=== PATIENT | female | born 1970 | race Caucasian/White ===

== ENCOUNTER 2019-03-17 22:55 | Inpatient (IN) ==
[2019-03-17] MEDS ORDERED: NITROGLYCERIN 2% OINT 1 INCH/GM PACK TOP STA (23:25)
[2019-03-17] MEDS ORDERED: HEPARIN DRIP 25,000 UNITS/500 ML PREMIX IV SCH (23:30)
[2019-03-18 01:41] LABS: PT Patient Result 10.8 SECS
[2019-03-18 07:07] LABS: PT Patient Result 10.9 SECS; Partial Thromboplastin Time 35.3 SECS (0-40)
[2019-03-18 10:11] LABS: Basophils # 0.1 10*3/uL (0.0-0.2); Basophils % 0.4 % (0.0-0.8); Eosinophils # 0.2 10*3/uL (0.0-0.87); Eosinophils % 1.8 % (0.00-10.9); Hematocrit 41.7 VOL% (35.7-47.0); Immature Granulocytes % 0.6 %; Immature Granulocytes Absolute 0.07 #; Lymphocytes # 3.6 10*3/uL (1.4-4.0); Mean Corpuscular HGB Conc 31.2 GM/DL (32-36); Mean Corpuscular Volume 88.5 FL (87-102); Mean Platelet Volume 10.1 FL (9.6-12.0); Neutrophils % 62.2 % (38.7-73.9); Platelet Count 256 T/CUMM (130-400); Red Blood Count 4.71 MC/CUMM (3.8-5.5); Red Cell Distribution Width 14.3 % (9.3-17.3); White Blood Count 11.9 T/CUMM (4-12)
[2019-03-18] MEDS: METOPROLOL TARTRATE 25 MG TABLET PO SCH ×2 (10:13→21:11)
[2019-03-18] MEDS: DEXTROSE 5% NACL 0.9% 1,000 ML IV SCH ×2 (10:22→10:23)
[2019-03-18 10:32] LABS: Troponin I 0.704 NG/ML (0.00-0.045)
[2019-03-18 10:37] LABS: Alanine Aminotransferase 51 U/L (13-56); Albumin 3.4 G/DL (3.4-5.0); Alkaline Phosphatase 86 U/L (45-117); Aspartate Amino Transferase 27 U/L (0-37); Bilirubin,Total < 0.39 MG/DL (0.2-1.0); Blood Urea Nitrogen 14 MG/DL (7-18); Glucose 108 MG/DL (74-106); HDL Cholesterol 45 MG/DL (40-60); Osmolality,Calculated 278.5 MOS/KG (273-304); Risk Ratio 2.87; Triglycerides 245 MG/DL (2-150)
[2019-03-18] MEDS: SODIUM CHLORIDE 0.9% 1,000 ML IV SCH (12:49)
[2019-03-18] MEDS: ACETAMINOPHEN 325 MG TABLET PO PRN (14:51)
[2019-03-18] MEDS: busPIRone 10 MG TABLET PO SCH ×2 (14:52→21:11)
[2019-03-18] MEDS ORDERED: NITROGLYCERIN SL 0.4 MG TABLET SL ONE (16:00)
[2019-03-18] MEDS ORDERED: amLODIPine 5 MG TABLET PO ONE (16:10)
[2019-03-18] MEDS: HEPARIN DRIP 25,000 UNITS/500 ML PREMIX IV SCH (16:31)
[2019-03-18] MEDS: NITROGLYCERIN 2% OINT 1 INCH/GM PACK TOP SCH (18:27)
[2019-03-18] MEDS: SIMVASTATIN 40 MG TABLET PO SCH (21:11)
[2019-03-18] MEDS ORDERED: HEPARIN 5,000 UNIT/1 ML VIAL IV PRN (23:28)
[2019-03-19] MEDS: NITROGLYCERIN 2% OINT 1 INCH/GM PACK TOP SCH ×5 (00:18→23:13)
[2019-03-19] MEDS: SODIUM CHLORIDE 0.9% 1,000 ML IV SCH ×2 (02:08→15:18)
[2019-03-19 03:37] LABS: Basophils # 0.1 10*3/uL (0.0-0.2); Basophils % 0.4 % (0.0-0.8); Eosinophils # 0.3 10*3/uL (0.0-0.87); Eosinophils % 2.8 % (0.00-10.9); Immature Granulocytes % 0.3 %; Immature Granulocytes Absolute 0.03 #; Lymphocytes # 4.3 10*3/uL (1.4-4.0); Lymphocytes % 37.4 % (21.3-54.2); Mean Corpuscular HGB Conc 31.6 GM/DL (32-36); Mean Corpuscular Volume 89.2 FL (87-102); Mean Platelet Volume 10.2 FL (9.6-12.0); Neutrophils % 53.1 % (38.7-73.9); Platelet Count 229 T/CUMM (130-400); Red Blood Count 4.26 MC/CUMM (3.8-5.5); Red Cell Distribution Width 14.4 % (9.3-17.3); White Blood Count 11.6 T/CUMM (4-12)
[2019-03-19 04:03] LABS: Albumin 3.1 G/DL (3.4-5.0); Bilirubin,Total 0.5 MG/DL (0.2-1.0); Calcium 8.8 MG/DL (8.5-10.1); Osmolality,Calculated 280.3 MOS/KG (273-304); Total Protein 6.3 G/DL (6.4-8.3)
[2019-03-19] MEDS: HEPARIN DRIP 25,000 UNITS/500 ML PREMIX IV SCH (05:13)
[2019-03-19] MEDS ORDERED: POTASSIUM CHLORIDE RIDER 10 MEQ in PREMIX 1 EACH IV PRN (07:43)
[2019-03-19] MEDS ORDERED: MAGNESIUM SULF RIDER 2 GM in PREMIX 1 EACH IV PRN (07:43)
[2019-03-19] MEDS: busPIRone 10 MG TABLET PO SCH ×3 (08:38→20:50)
[2019-03-19] MEDS: ENOXAPARIN 150 MG/ML SYRINGE SUBCUT SCH ×2 (08:38→20:49)
[2019-03-19] MEDS: ASPIRIN EC 81 MG TABLET PO SCH (08:39)
[2019-03-19] MEDS: FERROUS SULFATE 325 MG TABLET PO SCH (08:39)
[2019-03-19] MEDS: POTASSIUM CHLORIDE 20 MEQ TABLET PO SCH (08:39)
[2019-03-19] MEDS: METOPROLOL TARTRATE 25 MG TABLET PO SCH ×2 (08:39→20:50)
[2019-03-19] MEDS: LOSARTAN 25 MG TABLET PO SCH ×2 (08:40→20:50)
[2019-03-19] MEDS: PANTOPRAZOLE 40 MG TABLET PO SCH (08:40)
[2019-03-19] MEDS: VORTIOXETINE 20 MG PO SCH (08:54)
[2019-03-19] MEDS ORDERED: amLODIPine 5 MG TABLET PO SCH (09:00)
[2019-03-19] MEDS: ACETAMINOPHEN 325 MG TABLET PO PRN (15:19)
[2019-03-19] MEDS ORDERED: traMADol 50 MG TABLET PO PRN (17:17)
[2019-03-19] MEDS: SIMVASTATIN 40 MG TABLET PO SCH (20:50)
[2019-03-20] MEDS: NITROGLYCERIN 2% OINT 1 INCH/GM PACK TOP SCH ×3 (05:01→17:22)
[2019-03-20] MEDS: SODIUM CHLORIDE 0.9% 1,000 ML IV SCH ×2 (05:01→15:39)
[2019-03-20 05:10] LABS: Basophils # 0.1 10*3/uL (0.0-0.2); Basophils % 0.5 % (0.0-0.8); Eosinophils # 0.3 10*3/uL (0.0-0.87); Eosinophils % 3.1 % (0.00-10.9); Hematocrit 39.2 VOL% (35.7-47.0); Hemoglobin 11.8 GM/DL (12.0-16.0); Immature Granulocytes % 0.5 %; Immature Granulocytes Absolute 0.05 #; Lymphocytes % 31.1 % (21.3-54.2); Mean Corpuscular HGB Conc 30.1 GM/DL (32-36); Mean Corpuscular Volume 91.2 FL (87-102); Mean Platelet Volume 10.2 FL (9.6-12.0); Monocytes % 6.5 % (1.7-12.7); Neutrophils % 58.3 % (38.7-73.9); Platelet Count 224 T/CUMM (130-400); Red Cell Distribution Width 14.5 % (9.3-17.3); White Blood Count 9.7 T/CUMM (4-12)
[2019-03-20 05:12] LABS: Calcium 8.9 MG/DL (8.5-10.1); Osmolality,Calculated 280.3 MOS/KG (273-304)
[2019-03-20] MEDS ORDERED: DIAZEPAM 5 MG TABLET PO ONE (08:00)
[2019-03-20] MEDS ORDERED: diphenhydrAMINE CAP 25 MG CAPSULE PO ONE (08:00)
[2019-03-20] MEDS ORDERED: LIDOCAINE 1% 20 ML VIAL ONE (11:39)
[2019-03-20] MEDS ORDERED: NITROGLYCERIN DRIP 50 MG/250 ML BOTTLE IV ONE (11:39)
[2019-03-20] MEDS ORDERED: MIDAZOLAM 2 MG/2 ML VIAL ONE ×2 (11:39→11:55)
[2019-03-20] MEDS ORDERED: fentaNYL 100 MCG/2 ML VIAL ONE (11:39)
[2019-03-20] MEDS ORDERED: VERAPAMIL 5 MG/2 ML VIAL ONE (11:39)
[2019-03-20] MEDS ORDERED: PROMETHAZINE 25 MG/1 ML VIAL ONE (11:57)
[2019-03-20] MEDS ORDERED: ENOXAPARIN 60 MG/0.6 ML SYRINGE ONE (12:08)
[2019-03-20] MEDS ORDERED: diphenhydrAMINE 50 MG/1 ML VIAL ONE (12:23)
[2019-03-20] MEDS ORDERED: TIROFIBAN 5,000 MCG/100 ML PREMIX IV ONE ×2 (12:23→12:48)
[2019-03-20] MEDS ORDERED: TIROFIBAN 5,000 MCG/100 ML PREMIX IV SCH (12:25)
[2019-03-20] MEDS ORDERED: HYDROmorphone 2 MG/1 ML VIAL ONE (12:28)
[2019-03-20] MEDS ORDERED: hydrALAZINE 20 MG/1 ML VIAL ONE (12:31)
[2019-03-20] MEDS ORDERED: TICAGRELOR 90 MG TABLET ONE (13:06)
[2019-03-20] MEDS ORDERED: GLUCAGON 1 MG VIAL IM PRN (13:22)
[2019-03-20] MEDS ORDERED: DEXTROSE 50% 25 GM/50 ML VIAL IV PRN (13:22)
[2019-03-20] MEDS: busPIRone 10 MG TABLET PO SCH ×3 (13:49→21:56)
[2019-03-20 14:23] LABS: Apearance,Urine CLEAR (Clear); Bilirubin,Urine Negative (Negative); Blood, Urine Negative (Negative); Glucose,Urine (UA) Negative (Negative); Ketones,Urine Negative (Negative); Nitrite,Urine Negative (Negative); Protein,Urine Negative; RBC,Urine 1 /HPF (0-4); Urine Color Colorless (Yellow); Urine Specific Gravity 1.038 (1.001-1.035); Urine Urobilinogen < 2.0 EU/DL (<2.0)
[2019-03-20] MEDS: PANTOPRAZOLE 40 MG TABLET PO SCH (14:25)
[2019-03-20] MEDS: POTASSIUM CHLORIDE 20 MEQ TABLET PO SCH (14:25)
[2019-03-20] MEDS: ASPIRIN EC 81 MG TABLET PO SCH (14:25)
[2019-03-20] MEDS: LOSARTAN 25 MG TABLET PO SCH ×2 (14:26→21:56)
[2019-03-20] MEDS: FERROUS SULFATE 325 MG TABLET PO SCH (14:26)
[2019-03-20] MEDS: ENOXAPARIN 150 MG/ML SYRINGE SUBCUT SCH (14:26)
[2019-03-20] MEDS: VORTIOXETINE 20 MG PO SCH (14:26)
[2019-03-20] MEDS: METOPROLOL TARTRATE 25 MG TABLET PO SCH ×2 (14:26→21:57)
[2019-03-20] MEDS: INSULIN REGULAR 100 UNIT/ML SUBCUT SCH ×2 (16:21→21:57)
[2019-03-20] MEDS ORDERED: ENOXAPARIN 30 MG/0.3 ML SYRINGE SUBCUT SCH (21:00)
[2019-03-20] MEDS: SIMVASTATIN 40 MG TABLET PO SCH (21:56)
[2019-03-20] MEDS: TICAGRELOR 90 MG TABLET PO SCH (21:57)
[2019-03-21] MEDS: NITROGLYCERIN 2% OINT 1 INCH/GM PACK TOP SCH ×2 (03:41→06:22)
[2019-03-21] MEDS: SODIUM CHLORIDE 0.9% 1,000 ML IV SCH (03:41)
[2019-03-21 05:01] LABS: Basophils % 0.2 % (0.0-0.8); Eosinophils # 0.1 10*3/uL (0.0-0.87); Eosinophils % 0.8 % (0.00-10.9); Hematocrit 36.1 VOL% (35.7-47.0); Hemoglobin 11.3 GM/DL (12.0-16.0); Immature Granulocytes % 0.5 %; Immature Granulocytes Absolute 0.07 #; Lymphocytes # 2.2 10*3/uL (1.4-4.0); Lymphocytes % 16.7 % (21.3-54.2); Mean Corpuscular HGB Conc 31.3 GM/DL (32-36); Mean Corpuscular Volume 88.5 FL (87-102); Mean Platelet Volume 10.1 FL (9.6-12.0); Monocytes % 6.9 % (1.7-12.7); Neutrophils % 74.9 % (38.7-73.9); Platelet Count 237 T/CUMM (130-400); Red Blood Count 4.08 MC/CUMM (3.8-5.5); Red Cell Distribution Width 14.6 % (9.3-17.3)
[2019-03-21 05:44] LABS: Calcium 8.5 MG/DL (8.5-10.1); Osmolality,Calculated 279.3 MOS/KG (273-304)
[2019-03-21 05:45] LABS: Troponin I 0.618 NG/ML (0.00-0.045)
[2019-03-21] MEDS ORDERED: NITROGLYCERIN SL 0.4 MG TABLET SL PRN (08:05)
[2019-03-21 08:41] VITALS: BP 185/85
[2019-03-21] MEDS ORDERED: METOPROLOL TARTRATE 50 MG TABLET PO SCH (09:00)
[2019-03-21] MEDS ORDERED: POTASSIUM CHLORIDE 20 MEQ TABLET PO SCH (09:00)
[2019-03-21] MEDS: INSULIN REGULAR 100 UNIT/ML SUBCUT SCH (09:14)
[2019-03-21] MEDS: LOSARTAN 25 MG TABLET PO SCH (09:47)
[2019-03-21] MEDS: PANTOPRAZOLE 40 MG TABLET PO SCH (09:47)
[2019-03-21] MEDS: ASPIRIN EC 81 MG TABLET PO SCH (09:47)
[2019-03-21] MEDS: TICAGRELOR 90 MG TABLET PO SCH (09:47)
[2019-03-21] MEDS: FERROUS SULFATE 325 MG TABLET PO SCH (09:48)
[2019-03-21] MEDS: VORTIOXETINE 20 MG PO SCH (09:48)
[2019-03-21] MEDS: busPIRone 10 MG TABLET PO SCH (10:17)
== END 2019-03-21 11:48 | disposition home or self-care (01) | DRG 247 ==
LOC: EDUNIT# → EDBD → N.ED 22:55 → N.EDINP 03-18 02:03 → N.TELES 03-18 04:36 → N.TELEN 03-18 08:04
PROVIDERS: ADMIT Family Medicine; ATTEND Family Medicine
PROC: CLCCHCL (ICD-10-PCS; 2019-03-20 11:45)

== ENCOUNTER 2020-04-24 20:01 | Observation (INO) ==
[2020-04-24 20:28] LABS: Basophils # 0.1 10*3/uL (0.0-0.2); Basophils % 0.4 % (0.0-0.8); Eosinophils # 0.2 10*3/uL (0.0-0.87); Eosinophils % 1.2 % (0.00-10.9); Hemoglobin 12.5 GM/DL (12.0-16.0); Immature Granulocytes % 0.9 %; Immature Granulocytes Absolute 0.12 #; Lymphocytes # 2.5 10*3/uL (1.4-4.0); Lymphocytes % 18.1 % (21.3-54.2); Mean Corpuscular HGB Conc 32.1 GM/DL (32-36); Mean Corpuscular Volume 85.3 FL (87-102); Mean Platelet Volume 9.6 FL (9.6-12.0); Monocytes % 5.4 % (1.7-12.7); Platelet Count 261 T/CUMM (130-400); Red Blood Count 4.57 MC/CUMM (3.8-5.5); Red Cell Distribution Width 14.3 % (9.3-17.3); White Blood Count 13.6 T/CUMM (4-12)
[2020-04-24] MEDS ORDERED: ONDANSETRON 4 MG/2 ML VIAL IV STA (20:32)
[2020-04-24] MEDS ORDERED: NITROGLYCERIN 2% OINT 1 INCH/GM PACK TOP STA (20:32)
[2020-04-24] MEDS ORDERED: ASPIRIN 325 MG TABLET PO STA (20:32)
[2020-04-24] MEDS ORDERED: ALUM/MAG/SIMETH/LIDO VISC 1:1 30 ML BOTTLE PO STA (20:32)
[2020-04-24] MEDS ORDERED: MORPHINE 4 MG/1 ML VIAL IV STA (20:32)
[2020-04-24 20:51] LABS: Alanine Aminotransferase 30 U/L (13-56); Albumin 3.4 G/DL (3.4-5.0); Alkaline Phosphatase 96 U/L (45-117); Aspartate Amino Transferase 20 U/L (0-37); Bilirubin,Total < 0.39 MG/DL (0.2-1.0); Blood Urea Nitrogen 15 MG/DL (7-18); Calcium 8.5 MG/DL (8.5-10.1); Estimated Glom Filtration Rate 94 ML/MIN; Glucose 193 MG/DL (74-106); Osmolality,Calculated 280.7 MOS/KG (273-304); Total Protein 6.7 G/DL (6.4-8.3)
[2020-04-24 20:56] LABS: PT Patient Result 10.7 SECS (9.8-11.9); Partial Thromboplastin Time 25.7 SECS (23.9-33.8)
[2020-04-24] MEDS ORDERED: ENOXAPARIN 100 MG/ML SYRINGE SUBCUT STA (21:24)
[2020-04-24] MEDS ORDERED: ENOXAPARIN 40 MG/0.4 ML SYRINGE ONE (21:31)
[2020-04-24] MEDS ORDERED: ACETAMINOPHEN 325 MG TABLET PO PRN (21:54)
[2020-04-24] MEDS ORDERED: MORPHINE 4 MG/1 ML VIAL IV PRN (21:54)
[2020-04-24] MEDS ORDERED: DEXTROSE 50% 25 GM/50 ML VIAL IV PRN (21:54)
[2020-04-24] MEDS ORDERED: ONDANSETRON 4 MG/2 ML VIAL IV PRN (21:54)
[2020-04-24] MEDS ORDERED: GLUCAGON 1 MG VIAL IM PRN (21:54)
[2020-04-24] MEDS ORDERED: SODIUM CHLORIDE 0.9% 1,000 ML IV SCH (22:00)
[2020-04-25] MEDS: NITROGLYCERIN 2% OINT 1 INCH/GM PACK TOP SCH ×4 (00:21→19:51)
[2020-04-25 04:28] LABS: Basophils % 0.3 % (0.0-0.8); Eosinophils # 0.2 10*3/uL (0.0-0.87); Eosinophils % 1.2 % (0.00-10.9); Hematocrit 38.1 VOL% (35.7-47.0); Hemoglobin 12.3 GM/DL (12.0-16.0); Immature Granulocytes % 0.6 %; Immature Granulocytes Absolute 0.07 #; Lymphocytes # 4.2 10*3/uL (1.4-4.0); Lymphocytes % 33.4 % (21.3-54.2); Mean Corpuscular HGB Conc 32.3 GM/DL (32-36); Mean Corpuscular Volume 85.8 FL (87-102); Mean Platelet Volume 9.9 FL (9.6-12.0); Monocytes % 5.3 % (1.7-12.7); Neutrophils % 59.2 % (38.7-73.9); Platelet Count 266 T/CUMM (130-400); Red Blood Count 4.44 MC/CUMM (3.8-5.5); Red Cell Distribution Width 14.4 % (9.3-17.3); White Blood Count 12.5 T/CUMM (4-12)
[2020-04-25 04:51] LABS: Alanine Aminotransferase 31 U/L (13-56); Albumin 3.2 G/DL (3.4-5.0); Alkaline Phosphatase 90 U/L (45-117); Aspartate Amino Transferase 26 U/L (0-37); Bilirubin,Total < 0.39 MG/DL (0.2-1.0); Blood Urea Nitrogen 15 MG/DL (7-18); Calcium 8.5 MG/DL (8.5-10.1); Estimated Glom Filtration Rate 107 ML/MIN; Glucose 124 MG/DL (74-106); HDL Cholesterol 33 MG/DL (40-60); Osmolality,Calculated 282.3 MOS/KG (273-304); Risk Ratio 3.58; Total Protein 6.9 G/DL (6.4-8.3); Triglycerides 400 MG/DL (2-150)
[2020-04-25 05:04] LABS: Eosinophils 1 % (0-10); Hypochromasia 1+; Lymphocytes 33 % (20-55); Platelet Estimate Adequate; Segmented Neutrophils 63 % (50-85); Total Cells Counted 100
[2020-04-25] MEDS: PANTOPRAZOLE 40 MG TABLET PO SCH (08:40)
[2020-04-25] MEDS: DOCUSATE SODIUM 100 MG CAPSULE PO SCH ×2 (08:40→20:56)
[2020-04-25] MEDS: ENOXAPARIN 150 MG/ML SYRINGE SUBCUT SCH ×2 (08:40→20:57)
[2020-04-25] MEDS ORDERED: ASPIRIN EC 325 MG TABLET PO SCH (09:00)
[2020-04-25] MEDS ORDERED: MAGNESIUM SULF RIDER 2 GM in PREMIX 1 EACH IV PRN (09:36)
[2020-04-25] MEDS ORDERED: POTASSIUM CHLORIDE RIDER 10 MEQ in PREMIX 1 EACH IV PRN (09:36)
[2020-04-25] MEDS ORDERED: diphenhydrAMINE CAP 25 MG CAPSULE PO ONE (09:36)
[2020-04-25] MEDS ORDERED: DIAZEPAM 5 MG TABLET PO ONE (09:36)
[2020-04-25 10:36] LABS: Troponin I 0.353 NG/ML (0.00-0.045)
[2020-04-25] MEDS ORDERED: DEXTROSE 50% 25 GM/50 ML VIAL IV PRN (14:12)
[2020-04-25] MEDS ORDERED: fentaNYL 100 MCG/2 ML VIAL ONE ×2 (15:45→17:52)
[2020-04-25] MEDS ORDERED: MIDAZOLAM 2 MG/2 ML VIAL ONE ×2 (15:45→17:51)
[2020-04-25] MEDS ORDERED: LIDOCAINE 1% 20 ML VIAL ONE (15:45)
[2020-04-25 15:51] LABS: Troponin I 0.321 NG/ML (0.00-0.045)
[2020-04-25] MEDS: busPIRone 10 MG TABLET PO SCH ×2 (17:05→20:54)
[2020-04-25] MEDS ORDERED: PROMETHAZINE 25 MG/1 ML VIAL ONE (18:03)
[2020-04-25] MEDS ORDERED: TIROFIBAN 5,000 MCG/100 ML PREMIX IV ONE (18:06)
[2020-04-25] MEDS ORDERED: HYDROmorphone 2 MG/1 ML VIAL ONE (18:14)
[2020-04-25] MEDS ORDERED: TICAGRELOR 90 MG TABLET ONE (18:41)
[2020-04-25] MEDS ORDERED: SODIUM CHLORIDE 0.9% 1,000 ML IV SCH (19:00)
[2020-04-25] MEDS: INSULIN LISPRO 100 UNIT/ML SUBCUT SCH ×2 (19:51→20:18)
[2020-04-25] MEDS: METOPROLOL TARTRATE 50 MG TABLET PO SCH (20:55)
[2020-04-25] MEDS: LOSARTAN 25 MG TABLET PO SCH (20:55)
[2020-04-25] MEDS: TICAGRELOR 90 MG TABLET PO SCH (20:56)
[2020-04-25] MEDS ORDERED: QUEtiapine 25 MG TABLET PO SCH (21:00)
[2020-04-25] MEDS ORDERED: ROSUVASTATIN 20 MG TABLET PO SCH (21:00)
[2020-04-26] MEDS: NITROGLYCERIN 2% OINT 1 INCH/GM PACK TOP SCH ×3 (01:03→11:30)
[2020-04-26 05:25] LABS: Basophils % 0.3 % (0.0-0.8); Eosinophils # 0.2 10*3/uL (0.0-0.87); Eosinophils % 1.5 % (0.00-10.9); Hematocrit 38.9 VOL% (35.7-47.0); Hemoglobin 12.3 GM/DL (12.0-16.0); Immature Granulocytes % 0.5 %; Immature Granulocytes Absolute 0.05 #; Lymphocytes # 2.3 10*3/uL (1.4-4.0); Lymphocytes % 21.9 % (21.3-54.2); Mean Corpuscular HGB Conc 31.6 GM/DL (32-36); Mean Corpuscular Volume 85.3 FL (87-102); Monocytes % 5.3 % (1.7-12.7); Neutrophils % 70.5 % (38.7-73.9); Platelet Count 224 T/CUMM (130-400); Red Blood Count 4.56 MC/CUMM (3.8-5.5); Red Cell Distribution Width 14.2 % (9.3-17.3); White Blood Count 10.3 T/CUMM (4-12)
[2020-04-26 05:51] LABS: Calcium 9.1 MG/DL (8.5-10.1); Osmolality,Calculated 275.7 MOS/KG (273-304)
[2020-04-26] MEDS: INSULIN LISPRO 100 UNIT/ML SUBCUT SCH ×2 (07:46→11:30)
[2020-04-26] MEDS: DOCUSATE SODIUM 100 MG CAPSULE PO SCH (08:39)
[2020-04-26] MEDS: LOSARTAN 25 MG TABLET PO SCH (08:39)
[2020-04-26] MEDS: busPIRone 10 MG TABLET PO SCH (08:39)
[2020-04-26] MEDS: TICAGRELOR 90 MG TABLET PO SCH (08:39)
[2020-04-26] MEDS: METOPROLOL TARTRATE 50 MG TABLET PO SCH (08:39)
[2020-04-26] MEDS: PANTOPRAZOLE 40 MG TABLET PO SCH (08:39)
[2020-04-26] MEDS: ENOXAPARIN 150 MG/ML SYRINGE SUBCUT SCH (08:39)
[2020-04-26] MEDS ORDERED: VORTIOXETINE 20 MG PO SCH (09:00)
[2020-04-26] MEDS ORDERED: amLODIPine 5 MG TABLET PO SCH (09:00)
[2020-04-26] MEDS ORDERED: ASPIRIN EC 81 MG TABLET PO SCH (09:00)
[2020-04-26 11:32] VITALS: BP 154/78
== END 2020-04-26 12:05 | disposition home or self-care (01) ==
LOC: N.ED 20:01 → N.EDINP 20:01 → N.TELEN 04-25 05:53
PROVIDERS: ADMIT Family Medicine; ATTEND Family Medicine
PROC: CLCCHCL (ICD-10-PCS; 2020-04-25 16:45)

== ENCOUNTER 2021-09-06 16:56 | Inpatient (IN) ==
[2021-09-06] MEDS ORDERED: HEPARIN 5,000 UNIT/1 ML VIAL ONE (17:07)
[2021-09-06] MEDS ORDERED: NITROGLYCERIN DRIP 50 MG/250 ML BOTTLE IV ONE (17:07)
[2021-09-06] MEDS ORDERED: HEPARIN 5,000 UNIT/1 ML VIAL IV ONE (17:08)
[2021-09-06] MEDS ORDERED: MORPHINE 2 MG/1 ML SYRINGE IV PRN (17:08)
[2021-09-06] MEDS ORDERED: TICAGRELOR 90 MG TABLET PO STA (17:10)
[2021-09-06] MEDS ORDERED: ONDANSETRON 4 MG/2 ML VIAL ONE (17:11)
[2021-09-06] MEDS ORDERED: MORPHINE 2 MG/1 ML SYRINGE ONE (17:11)
[2021-09-06] MEDS: NITROGLYCERIN DRIP 50 MG/250 ML BOTTLE IV SCH (17:13)
[2021-09-06 17:16] LABS: Basophils % 0.3 % (0.0-0.8); Eosinophils # 0.2 10*3/uL (0.0-0.87); Eosinophils % 1.8 % (0.00-10.9); Hematocrit 43.8 VOL% (35.7-47.0); Hemoglobin 13.4 GM/DL (12.0-16.0); Immature Granulocytes % 0.5 %; Immature Granulocytes Absolute 0.06 #; Lymphocytes % 24.8 % (21.3-54.2); Mean Corpuscular HGB Conc 30.6 GM/DL (32-36); Mean Corpuscular Volume 86.4 FL (87-102); Mean Platelet Volume 9.9 FL (9.6-12.0); Monocytes % 4.5 % (1.7-12.7); Neutrophils % 68.1 % (38.7-73.9); Platelet Count 246 T/CUMM (130-400); Red Blood Count 5.07 MC/CUMM (3.8-5.5); Red Cell Distribution Width 14.7 % (9.3-17.3); White Blood Count 11.9 T/CUMM (4-12)
[2021-09-06] MEDS ORDERED: ENOXAPARIN 60 MG/0.6 ML SYRINGE ONE (17:24)
[2021-09-06] MEDS ORDERED: fentaNYL 100 MCG/2 ML VIAL ONE (17:25)
[2021-09-06] MEDS ORDERED: MIDAZOLAM 2 MG/2 ML VIAL ONE (17:25)
[2021-09-06 17:39] LABS: Bilirubin,Total 0.4 MG/DL (0.20-1.00); Calcium 9.6 MG/DL (8.5-10.1); Osmolality,Calculated 279.5 MOS/KG (273-304); PT Patient Result 11.2 SECS (10.5-12.0); Potassium 3.5 MMOL/L (3.5-5.1); Total Protein 7.6 G/DL (6.4-8.2)
[2021-09-06] MEDS ORDERED: EPTIFIBATIDE 75 MG/100 ML BOTTLE IV ONE (17:42)
[2021-09-06] MEDS ORDERED: EPTIFIBATIDE 20,000 MCG/10 ML VIAL ONE ×2 (17:42→17:43)
[2021-09-06] MEDS ORDERED: HYDROmorphone 2 MG/1 ML VIAL ONE (17:45)
[2021-09-06] MEDS ORDERED: EPTIFIBATIDE 75 MG/100 ML BOTTLE IV SCH (17:50)
[2021-09-06] MEDS ORDERED: FUROSEMIDE 40 MG/4 ML VIAL ONE (17:52)
[2021-09-06] MEDS ORDERED: SODIUM CHLORIDE 0.9% 1,000 ML IV STA (18:04)
[2021-09-06] MEDS ORDERED: ONDANSETRON 4 MG/2 ML VIAL IV STA (18:04)
[2021-09-06] MEDS ORDERED: NITROGLYCERIN SL 0.4 MG TABLET SL PRN (18:15)
[2021-09-06] MEDS ORDERED: ZALEPLON 5 MG CAPSULE PO PRN (18:15)
[2021-09-06] MEDS ORDERED: ONDANSETRON 4 MG/2 ML VIAL IV PRN (18:21)
[2021-09-06] MEDS ORDERED: GLUCAGON 1 MG VIAL IM PRN (18:25)
[2021-09-06] MEDS ORDERED: DEXTROSE 50% 25 GM/50 ML SYRINGE IV PRN (18:28)
[2021-09-06 18:38] LABS: ABG HCO3 19.9 MMOL/L (20-26); ABG Oxygen Saturation 77.4 % (95-100); ABG PCO2 36.4 MM HG (35-48); ABG PH 7.355 (7.35-7.45); ABG PO2 43.8 MM HG (80-95)
[2021-09-06] MEDS ORDERED: METOPROLOL TARTRATE 5 MG/5 ML VIAL IV ONE ×3 (18:46→19:41)
[2021-09-06] MEDS: SODIUM CHLORIDE 0.9% 1,000 ML IV SCH ×2 (19:30→20:44)
[2021-09-06 20:39] LABS: CKMB % 3.3 %
[2021-09-06] MEDS: MORPHINE 2 MG/1 ML SYRINGE IV PRN (20:40)
[2021-09-06 20:41] LABS: High Sensitive Troponin I* > 125000 ng/L (0-54)
[2021-09-06] MEDS ORDERED: METOPROLOL TARTRATE 50 MG TABLET PO SCH (21:00)
[2021-09-06] MEDS ORDERED: ROSUVASTATIN 20 MG TABLET PO SCH (21:00)
[2021-09-06] MEDS: hydrALAZINE 20 MG/1 ML VIAL IV PRN (21:08)
[2021-09-06] MEDS ORDERED: busPIRone 10 MG TABLET PO PRN (22:00)
[2021-09-06] MEDS ORDERED: QUEtiapine 25 MG TABLET PO SCH (22:00)
[2021-09-06 22:16] LABS: CKMB % 3.9 %
[2021-09-06 22:21] LABS: High Sensitive Troponin I* > 125000 ng/L (0-54)
[2021-09-06] MEDS: guaiFENesin/CODEINE 5 ML LIQUID PO PRN (22:30)
[2021-09-07] MEDS: MORPHINE 2 MG/1 ML SYRINGE IV PRN ×2 (01:06→09:45)
[2021-09-07 01:17] LABS: CKMB % 3.9 %
[2021-09-07 01:27] LABS: High Sensitive Troponin I* > 125000 ng/L (0-54)
[2021-09-07 04:29] LABS: Basophils % 0.2 % (0.0-0.8); Eosinophils % 0.1 % (0.00-10.9); Hematocrit 44.8 VOL% (35.7-47.0); Hemoglobin 13.8 GM/DL (12.0-16.0); Immature Granulocytes % 0.5 %; Immature Granulocytes Absolute 0.08 #; Lymphocytes # 1.5 10*3/uL (1.4-4.0); Lymphocytes % 9.1 % (21.3-54.2); Mean Corpuscular HGB Conc 30.8 GM/DL (32-36); Mean Platelet Volume 9.8 FL (9.6-12.0); Monocytes % 4.2 % (1.7-12.7); Neutrophils % 85.9 % (38.7-73.9); Platelet Count 288 T/CUMM (130-400); Red Blood Count 5.27 MC/CUMM (3.8-5.5); Red Cell Distribution Width 14.9 % (9.3-17.3); White Blood Count 16.7 T/CUMM (4-12)
[2021-09-07 05:39] LABS: Blood Urea Nitrogen 15 MG/DL (7-18); Carbon Dioxide 21 MMOL/L (21-32); Estimated Glom Filtration Rate 127 ML/MIN; Glucose 152 MG/DL (74-106); HDL Cholesterol 49 MG/DL (40-60); Osmolality,Calculated 276.8 MOS/KG (273-304); Potassium 3.8 MMOL/L (3.5-5.1); Sodium 137 MMOL/L (136-145); Triglycerides 194 MG/DL (2-150); VLDL Cholesterol 38.8 MG/DL
[2021-09-07 05:41] LABS: High Sensitive Troponin I* > 125000 ng/L (0-54)
[2021-09-07] MEDS: METOPROLOL TARTRATE 5 MG/5 ML VIAL IV PRN ×2 (06:07→18:18)
[2021-09-07] MEDS ORDERED: NITROGLYCERIN SL 0.4 MG TABLET SL PRN (07:06)
[2021-09-07] MEDS ORDERED: MAGNESIUM SULF RIDER 2 GM/50 ML PREMIX IV PRN (08:42)
[2021-09-07] MEDS ORDERED: DEXTROSE 50% 25 GM/50 ML VIAL IV PRN ×2 (08:47→13:20)
[2021-09-07] MEDS ORDERED: FUROSEMIDE 40 MG/4 ML VIAL IV SCH (09:00)
[2021-09-07] MEDS ORDERED: FERROUS SULFATE 325 MG TABLET PO SCH (09:00)
[2021-09-07] MEDS ORDERED: NON-FORMULARY MEDICATION (Vortioxetine [Trintellix] 20 mg Tablet) PO SCH (09:00)
[2021-09-07] MEDS ORDERED: PANTOPRAZOLE 40 MG TABLET PO SCH (09:00)
[2021-09-07] MEDS ORDERED: LOSARTAN 25 MG TABLET PO SCH (09:00)
[2021-09-07] MEDS ORDERED: ASPIRIN EC 81 MG TABLET PO SCH (09:00)
[2021-09-07] MEDS: PANTOPRAZOLE 40 MG TABLET PO SCH (09:47)
[2021-09-07] MEDS: ASPIRIN EC 81 MG TABLET PO SCH (09:47)
[2021-09-07] MEDS: busPIRone 10 MG TABLET PO SCH ×3 (09:47→20:07)
[2021-09-07] MEDS: amLODIPine 5 MG TABLET PO SCH (09:47)
[2021-09-07] MEDS: POTASSIUM CHLORIDE 20 MEQ TABLET PO SCH ×2 (09:47→20:05)
[2021-09-07] MEDS: TICAGRELOR 90 MG TABLET PO SCH ×2 (09:47→20:06)
[2021-09-07] MEDS: METOPROLOL TARTRATE 50 MG TABLET PO SCH ×2 (09:47→20:06)
[2021-09-07] MEDS: LOSARTAN 25 MG TABLET PO SCH ×2 (09:55→20:05)
[2021-09-07] MEDS: guaiFENesin/CODEINE 5 ML LIQUID PO PRN (09:58)
[2021-09-07] MEDS ORDERED: INSULIN LISPRO 100 UNIT/ML SUBCUT SCH (11:30)
[2021-09-07] MEDS: INSULIN LISPRO 100 UNIT/ML SUBCUT SCH ×2 (15:41→20:07)
[2021-09-07] MEDS: FERROUS SULFATE 325 MG TABLET PO SCH (16:16)
[2021-09-07] MEDS: hydrALAZINE 20 MG/1 ML VIAL IV PRN (16:16)
[2021-09-07] MEDS: NITROGLYCERIN DRIP 50 MG/250 ML BOTTLE IV SCH (17:36)
[2021-09-07] MEDS: ROSUVASTATIN 20 MG TABLET PO SCH (20:06)
[2021-09-07] MEDS: QUEtiapine 25 MG TABLET PO SCH (20:06)
[2021-09-08 05:28] LABS: Basophils % 0.2 % (0.0-0.8); Eosinophils # 0.1 10*3/uL (0.0-0.87); Eosinophils % 0.6 % (0.00-10.9); Hematocrit 43.4 VOL% (35.7-47.0); Hemoglobin 13.4 GM/DL (12.0-16.0); Immature Granulocytes % 0.5 %; Immature Granulocytes Absolute 0.07 #; Lymphocytes # 2.1 10*3/uL (1.4-4.0); Lymphocytes % 13.9 % (21.3-54.2); Mean Corpuscular HGB Conc 30.9 GM/DL (32-36); Mean Corpuscular Volume 86.3 FL (87-102); Monocytes % 7.3 % (1.7-12.7); Neutrophils % 77.5 % (38.7-73.9); Platelet Count 257 T/CUMM (130-400); Red Blood Count 5.03 MC/CUMM (3.8-5.5); Red Cell Distribution Width 15.1 % (9.3-17.3)
[2021-09-08 06:01] LABS: CKMB % 1.7 %; Calcium 8.7 MG/DL (8.5-10.1); Potassium 3.7 MMOL/L (3.5-5.1)
[2021-09-08 06:03] LABS: High Sensitive Troponin I* 37890.8 ng/L (0-54)
[2021-09-08] MEDS: INSULIN LISPRO 100 UNIT/ML SUBCUT SCH ×4 (07:29→20:12)
[2021-09-08] MEDS: METOPROLOL TARTRATE 50 MG TABLET PO SCH ×2 (08:48→20:09)
[2021-09-08] MEDS: guaiFENesin/CODEINE 5 ML LIQUID PO PRN (08:49)
[2021-09-08] MEDS: ASPIRIN EC 81 MG TABLET PO SCH (08:49)
[2021-09-08] MEDS: POTASSIUM CHLORIDE 20 MEQ TABLET PO SCH ×2 (08:49→20:09)
[2021-09-08] MEDS: FENOFIBRATE 145 MG TABLET PO SCH (08:49)
[2021-09-08] MEDS: LOSARTAN 25 MG TABLET PO SCH ×2 (08:49→20:09)
[2021-09-08] MEDS: PANTOPRAZOLE 40 MG TABLET PO SCH (08:50)
[2021-09-08] MEDS: NON-FORMULARY MEDICATION (Vortioxetine [Trintellix] 20 mg Tablet) PO SCH (08:50)
[2021-09-08] MEDS: TICAGRELOR 90 MG TABLET PO SCH ×2 (08:50→20:09)
[2021-09-08] MEDS: busPIRone 10 MG TABLET PO SCH ×3 (08:50→20:09)
[2021-09-08] MEDS: FERROUS SULFATE 325 MG TABLET PO SCH ×2 (08:50→16:30)
[2021-09-08] MEDS: amLODIPine 5 MG TABLET PO SCH (08:50)
[2021-09-08] MEDS ORDERED: FUROSEMIDE 40 MG TABLET PO SCH (09:00)
[2021-09-08] MEDS: ROSUVASTATIN 20 MG TABLET PO SCH (20:09)
[2021-09-08] MEDS: QUEtiapine 25 MG TABLET PO SCH (20:09)
[2021-09-09 05:28] LABS: Basophils % 0.3 % (0.0-0.8); Eosinophils # 0.3 10*3/uL (0.0-0.87); Eosinophils % 2.7 % (0.00-10.9); Hematocrit 41.8 VOL% (35.7-47.0); Hemoglobin 12.6 GM/DL (12.0-16.0); Immature Granulocytes % 0.6 %; Immature Granulocytes Absolute 0.07 #; Lymphocytes # 2.8 10*3/uL (1.4-4.0); Lymphocytes % 24.1 % (21.3-54.2); Mean Corpuscular HGB Conc 30.1 GM/DL (32-36); Mean Corpuscular Volume 88.9 FL (87-102); Mean Platelet Volume 10.1 FL (9.6-12.0); Monocytes % 7.8 % (1.7-12.7); Neutrophils % 64.5 % (38.7-73.9); Platelet Count 226 T/CUMM (130-400); Red Cell Distribution Width 15.1 % (9.3-17.3); White Blood Count 11.7 T/CUMM (4-12)
[2021-09-09 05:41] LABS: Calcium 8.8 MG/DL (8.5-10.1); Potassium 3.7 MMOL/L (3.5-5.1)
[2021-09-09] MEDS: busPIRone 10 MG TABLET PO SCH (08:44)
[2021-09-09] MEDS: FENOFIBRATE 145 MG TABLET PO SCH (08:44)
[2021-09-09] MEDS: POTASSIUM CHLORIDE 20 MEQ TABLET PO SCH (08:44)
[2021-09-09] MEDS: ASPIRIN EC 81 MG TABLET PO SCH (08:45)
[2021-09-09] MEDS: FERROUS SULFATE 325 MG TABLET PO SCH (08:45)
[2021-09-09] MEDS: TICAGRELOR 90 MG TABLET PO SCH (08:45)
[2021-09-09] MEDS: METOPROLOL TARTRATE 50 MG TABLET PO SCH (08:45)
[2021-09-09] MEDS: PANTOPRAZOLE 40 MG TABLET PO SCH (08:45)
[2021-09-09] MEDS ORDERED: LOSARTAN 25 MG TABLET PO SCH (09:00)
[2021-09-09] MEDS ORDERED: FUROSEMIDE 20 MG TABLET PO SCH (09:00)
[2021-09-09] MEDS: INSULIN LISPRO 100 UNIT/ML SUBCUT SCH (12:26)
[2021-09-09 12:27] VITALS: BP 112/75
[2021-09-09] MEDS: NON-FORMULARY MEDICATION (Vortioxetine [Trintellix] 20 mg Tablet) PO SCH (12:27)
== END 2021-09-09 14:35 | disposition home or self-care (01) | DRG 246 ==
LOC: EDUNIT# → EDBD → N.ED 16:56 → N.EDINP 17:12 → N.ICU 18:51
PROVIDERS: ADMIT Internal Medicine Cardiovascular Disease; ATTEND Internal Medicine Cardiovascular Disease
PROC: CLCCHCL (ICD-10-PCS; 2021-09-06 17:45)

== ENCOUNTER 2021-09-10 21:56 | Observation (INO) ==
[2021-09-10] MEDS ORDERED: ONDANSETRON 4 MG/2 ML VIAL IV STA (22:04)
[2021-09-10] MEDS ORDERED: MORPHINE 2 MG/1 ML SYRINGE IV STA (22:04)
[2021-09-10] MEDS ORDERED: ENOXAPARIN 100 MG/ML SYRINGE SUBCUT STA (22:04)
[2021-09-10] MEDS ORDERED: NITROGLYCERIN DRIP 50 MG/250 ML BOTTLE IV SCH (22:30)
[2021-09-10] MEDS ORDERED: LORazepam 2 MG/1 ML VIAL ONE (22:35)
[2021-09-10] MEDS ORDERED: LORazepam 2 MG/1 ML VIAL IV STA (22:35)
[2021-09-10 22:50] LABS: Basophils # 0.1 10*3/uL (0.0-0.2); Basophils % 0.5 % (0.0-0.8); Eosinophils # 0.3 10*3/uL (0.0-0.87); Eosinophils % 2.1 % (0.00-10.9); Hematocrit 42.1 VOL% (35.7-47.0); Hemoglobin 12.9 GM/DL (12.0-16.0); Immature Granulocytes % 0.5 %; Immature Granulocytes Absolute 0.08 #; Lymphocytes # 3.1 10*3/uL (1.4-4.0); Lymphocytes % 20.1 % (21.3-54.2); Mean Corpuscular HGB Conc 30.6 GM/DL (32-36); Mean Corpuscular Volume 86.8 FL (87-102); Monocytes % 6.1 % (1.7-12.7); Neutrophils % 70.7 % (38.7-73.9); Platelet Count 350 T/CUMM (130-400); Red Blood Count 4.85 MC/CUMM (3.8-5.5); Red Cell Distribution Width 15.2 % (9.3-17.3); White Blood Count 15.5 T/CUMM (4-12)
[2021-09-10 22:57] LABS: PT Patient Result 11.1 SECS (10.5-12.0); Partial Thromboplastin Time < 20.0 SECS (23.8-32.1)
[2021-09-10 23:16] LABS: Albumin 3.7 G/DL (3.4-5.0); Bilirubin,Total 0.5 MG/DL (0.20-1.00); Calcium 9.8 MG/DL (8.5-10.1); Osmolality,Calculated 280.5 MOS/KG (273-304); Potassium 3.6 MMOL/L (3.5-5.1)
[2021-09-10] MEDS ORDERED: MORPHINE 2 MG/1 ML SYRINGE IV PRN (23:57)
[2021-09-10] MEDS ORDERED: ONDANSETRON 4 MG/2 ML VIAL IV PRN (23:57)
[2021-09-10] MEDS ORDERED: MAGNESIUM SULF RIDER 4 GM/100 ML PREMIX IV PRN (23:57)
[2021-09-10] MEDS ORDERED: MAGNESIUM SULF RIDER 2 GM/50 ML PREMIX IV PRN (23:57)
[2021-09-11] MEDS ORDERED: NITROGLYCERIN 2% OINT 1 INCH/GM PACK TOP STA ×2 (00:39→00:46)
[2021-09-11 05:21] LABS: CKMB % 2.7 %
[2021-09-11] MEDS ORDERED: METOPROLOL TARTRATE 50 MG TABLET PO SCH (09:00)
[2021-09-11] MEDS ORDERED: FUROSEMIDE 20 MG TABLET PO SCH (09:00)
[2021-09-11] MEDS ORDERED: LOSARTAN 25 MG TABLET PO SCH (09:00)
[2021-09-11] MEDS ORDERED: ASPIRIN EC 81 MG TABLET PO SCH (09:00)
[2021-09-11] MEDS ORDERED: POTASSIUM CHLORIDE 20 MEQ TABLET PO SCH (09:00)
[2021-09-11] MEDS ORDERED: TICAGRELOR 90 MG TABLET PO SCH (09:00)
[2021-09-11] MEDS ORDERED: amLODIPine 5 MG TABLET PO SCH (09:00)
[2021-09-11] MEDS ORDERED: busPIRone 10 MG TABLET PO SCH (09:00)
[2021-09-11] MEDS ORDERED: PANTOPRAZOLE 40 MG TABLET PO SCH (09:00)
[2021-09-11] MEDS ORDERED: NON-FORMULARY MEDICATION (Vortioxetine [Trintellix] 20 mg Tablet) PO SCH (09:00)
[2021-09-11 13:58] VITALS: BP 148/99
[2021-09-11] MEDS ORDERED: QUEtiapine 25 MG TABLET PO SCH (21:00)
[2021-09-11] MEDS ORDERED: ROSUVASTATIN 20 MG TABLET PO SCH (21:00)
== END 2021-09-11 12:55 | disposition home or self-care (01) ==
LOC: EDUNIT# → EDBD → N.EDINP 21:56 → N.ED 21:56 → N.EDINP 09-11 12:55
PROVIDERS: ADMIT Internal Medicine Cardiovascular Disease; ATTEND Internal Medicine Cardiovascular Disease